=== PATIENT | female | born 1955 ===

== ENCOUNTER 2023-01-31 07:15 | Inpatient (IN) | payer OTHER ==
[~2023-01-31] VITALS: Ht 160 cm; Wt 117.0 kg
[2023-01-31] MEDS ORDERED: COZAAR100 MG PO (09:40)
[2023-01-31] MEDS ORDERED: LIPITOR20 MG PO (09:41)
[2023-01-31] MEDS ORDERED: FOSAMAX70 MG PO (09:41)
[2023-01-31] MEDS ORDERED: SYMBICORT 16010.2 GM IH (09:41)
[2023-02-04] MEDS ORDERED: METFORMIN HCL500 M4 (08:09)
[2023-02-04] MEDS ORDERED: ATORVASTATIN CA20 MG (08:09)
[2023-02-04] MEDS ORDERED: MONTELUKAST SOD10 MG (08:09)
[2023-02-04] MEDS ORDERED: PRO-FAST SR37.5 MG (08:14)
[2023-02-06] MEDS ORDERED: INTEGRA PLUS C1 EACH PO (07:56)
[2023-02-06] MEDS ORDERED: BACTRIM DS TAB1 EACH PO (07:56)
[2023-02-06] MEDS ORDERED: XARELTO10 MG PO (07:56)
[2023-02-06] MEDS ORDERED: OXYC1TAB9 PO (07:56)
== END 2023-02-06 13:00 | DRG 470 ==
LOC: SURG 02-04 06:20 → O/R 02-04 06:20 → SURG 02-04 07:15
PROVIDERS: ADMIT Orthopaedic Surgery Sports Medicine; ATTEND Orthopaedic Surgery Sports Medicine
PROC: 0SRD0J9 Replacement of Left Knee Joint with Synthetic Substitute, Cemented, Open Approach (ICD-10-PCS; principal; 2023-02-04 13:30)
DX: M17.12 Unilateral primary osteoarthritis, left knee (principal); I10 Essential (primary) hypertension

== ENCOUNTER 2023-03-14 07:13 | Emergency (ER) | payer OTHER ==
[~2023-03-14] VITALS: Ht 152.4 cm; Wt 105.2 kg
[~2023-03-14 07:13] MED LIST: ATORVASTATIN CA20 MG; BACTRIM DS TAB1 EACH PO; COZAAR100 MG PO; FOSAMAX70 MG PO; INTEGRA PLUS C1 EACH PO; LIPITOR20 MG PO; METFORMIN HCL500 M4; MONTELUKAST SOD10 MG; OXYC1TAB9 PO; PRO-FAST SR37.5 MG; SYMBICORT 16010.2 GM IH; XARELTO10 MG PO
== END 2023-03-14 15:59 | disposition home or self-care (01) ==
LOC: ER 07:13
DX: M25.562 Pain in left knee (principal); Z96.652 Presence of left artificial knee joint; J45.909 Unspecified asthma, uncomplicated; E11.9 Type 2 diabetes mellitus without complications; Z79.84 Long term (current) use of oral hypoglycemic drugs; I10 Essential (primary) hypertension